=== PATIENT | male | born 1945 | race Caucasian/White ===

== ENCOUNTER 2016-07-07 13:55 | Observation (INO) | payer MEDICARE, OTHER ==
--- NOTE | 2016-07-07 14:08 | ED ---
General Adult HPI - General Stated complaint: SEIZURE Time Seen by Provider: 07/07/16 13:56 Source: RN notes reviewed, old records reviewed - History of Present Illness Initial comments: This is a 70-year-old male the ER for evaluation. Patient has no recollections of events. Patient was In the grocery store and per bystanders EMS and the history obtained from the chart patient hasn't difficulty fumbling to pay for his meal and he then had a fall and then had a seizure. Patient has no medical history of seizures, denies drugs or alcohol, does have history of diabetes and high cholesterol, has been taking medication as prescribed - Related Data Allergies Allergy/AdvReac Type Severity Reaction Status Date / Time No Known Allergies Allergy Verified 07/07/16 14:03 Review of Systems ROS Statement: Those systems with pertinent positive or pertinent negative responses have been documented in the HPI. ROS Other: All systems not noted in ROS Statement are negative. General Exam General appearance: alert, in no apparent distress Head exam: Present: atraumatic, normocephalic, normal inspection Eye exam: Present: normal appearance, PERRL, EOMI. Absent: scleral icterus, conjunctival injection, periorbital swelling ENT exam: Present: normal exam, mucous membranes moist Neck exam: Present: normal inspection. Absent: tenderness, meningismus, lymphadenopathy Respiratory exam: Present: normal lung sounds bilaterally. Absent: respiratory distress, wheezes, rales, rhonchi, stridor Cardiovascular Exam: Present: regular rate, normal rhythm, normal heart sounds. Absent: systolic murmur, diastolic murmur, rubs, gallop, clicks GI/Abdominal exam: Present: soft, normal bowel sounds. Absent: distended, tenderness, guarding, rebound, rigid Extremities exam: Present: normal inspection, full ROM, normal capillary refill. Absent: tenderness, pedal edema, joint swelling, calf tenderness Back exam: Present: normal inspection Neurological exam: Present: alert, oriented X3, CN II-XII intact Psychiatric exam: Present: normal affect, normal mood Skin exam: Present: warm, dry, intact, normal color. Absent: rash Course Vital Signs 07/07/16 07/07/16 14:03 14:37 Temperature 97.0 F L Pulse Rate 93 84 Respiratory 18 18 Rate Blood Pressure 159/79 133/60 O2 Sat by Pulse 96 97 Oximetry - Reevaluation(s) Reevaluation #1: 07/07/16 15:09 Patient remains without syncope or seizure here in the emergency room Reevaluation #2: 07/07/16 15:09 Speaking with , patient does seem to have episodes with his glipizide of hypoglycemia that makes him have his altered mental status issues EKG Findings - EKG Comments: EKG Findings:: EKG shows normal sinus rhythm rate of 93, TN 176, QRS 90, QTC 482 Medical Decision Making - Medical Decision Making 70-year-old ER for evaluation of syncope and seizure, CT is normal, lab work is normal, blood sugar is maintained normal throughout stay, patient asymptomatic has no recollection of events, patient be admitted for neurological evaluation - Lab Data Result diagrams: 07/07/16 14:10 07/07/16 14:10 Lab Results 07/07/16 07/07/16 07/07/16 Range/Units 14:10 14:10 14:10 WBC 9.4 (3.8-10.6) k/uL RBC 4.51 (4.30-5.90) m/uL Hgb 13.5 (13.0-17.5) gm/dL Hct 40.8 (39.0-53.0) % MCV 90.4 (80.0-100.0) fL MCH 30.0 (25.0-35.0) pg MCHC 33.2 (31.0-37.0) g/dL RDW 12.9 (11.5-15.5) % Plt Count 273 (150-450) k/uL Neutrophils % 65 % Lymphocytes % 26 % Monocytes % 4 % Eosinophils % 1 % Basophils % 0 % Neutrophils # 6.1 (1.3-7.7) k/uL Lymphocytes # 2.4 (1.0-4.8) k/uL Monocytes # 0.4 (0-1.0) k/uL Eosinophils # 0.1 (0-0.7) k/uL Basophils # 0.0 (0-0.2) k/uL Sodium 140 (137-145) mmol/L Potassium 4.3 (3.5-5.1) mmol/L Chloride 106 (98-107) mmol/L Carbon Dioxide 14 L (22-30) mmol/L Anion Gap 20 mmol/L BUN 14 (9-20) mg/dL Creatinine 1.30 H (0.66-1.25) mg/dL Est GFR (MDRD) Af Amer >60 (>60 ml/min/1.73 sqM) Est GFR (MDRD) Non-Af 54 (>60 ml/min/1.73 sqM) Glucose 106 H (74-99) mg/dL POC Glucose (mg/dL) (75-99) mg/dL POC Glu Ships Or [employer]es Loader ID Calcium 9.5 (8.4-10.2) mg/dL Phosphorus 2.8 (2.5-4.5) mg/dL Magnesium 1.9 (1.6-2.3) mg/dL Total Bilirubin 0.6 (0.2-1.3) mg/dL AST 32 (17-59) U/L ALT 43 (21-72) U/L Alkaline Phosphatase 70 (38-126) U/L Total Creatine Kinase 69 (55-170) U/L CK-MB (CK-2) 0.7 (0.0-2.4) ng/mL CK-MB (CK-2) Rel Index 1.0 Troponin I <0.012 (0.000-0.034) ng/mL Total Protein 6.9 (6.3-8.2) g/dL Albumin 4.1 (3.5-5.0) g/dL Urine Color Urine Appearance (Clear) Urine pH (5.0-8.0) Ur Specific [place] (1.001-1.035) Urine Protein (Negative) Urine Glucose (UA) (Negative) Urine Ketones (Negative) Urine Blood (Negative) Urine Nitrate (Negative) Urine Bilirubin (Negative) Urine Urobilinogen (<2.0) mg/dL Ur Leukocyte Esterase (Negative) Urine RBC (0-5) /hpf Urine WBC (0-5) /hpf Urine Mucus (None) /hpf Urine Sperm (None) /hpf Serum Alcohol <10 mg/dL 07/07/16 07/07/16 Range/Units 14:12 14:45 WBC (3.8-10.6) k/uL RBC (4.30-5.90) m/uL Hgb (13.0-17.5) gm/dL Hct (39.0-53.0) % MCV (80.0-100.0) fL MCH (25.0-35.0) pg MCHC (31.0-37.0) g/dL RDW (11.5-15.5) % Plt Count (150-450) k/uL Neutrophils % % Lymphocytes % % Monocytes % % Eosinophils % % Basophils % % Neutrophils # (1.3-7.7) k/uL Lymphocytes # (1.0-4.8) k/uL Monocytes # (0-1.0) k/uL Eosinophils # (0-0.7) k/uL Basophils # (0-0.2) k/uL Sodium (137-145) mmol/L Potassium (3.5-5.1) mmol/L Chloride (98-107) mmol/L Carbon Dioxide (22-30) mmol/L Anion Gap mmol/L BUN (9-20) mg/dL Creatinine (0.66-1.25) mg/dL Est GFR (MDRD) Af Amer (>60 ml/min/1.73 sqM) Est GFR (MDRD) Non-Af (>60 ml/min/1.73 sqM) Glucose (74-99) mg/dL POC Glucose (mg/dL) 100 H (75-99) mg/dL POC Glu S[employer] Or [employer]es Loader ID Branch, Ari Calcium (8.4-10.2) mg/dL Phosphorus (2.5-4.5) mg/dL Magnesium (1.6-2.3) mg/dL Total Bilirubin (0.2-1.3) mg/dL AST (17-59) U/L ALT (21-72) U/L Alkaline Phosphatase (38-126) U/L Total Creatine Kinase (55-170) U/L CK-MB (CK-2) (0.0-2.4) ng/mL CK-MB (CK-2) Rel Index Troponin I (0.000-0.034) ng/mL Total Protein (6.3-8.2) g/dL Albumin (3.5-5.0) g/dL Urine Color Yellow Urine Appearance Clear (Clear) Urine pH 5.0 (5.0-8.0) Ur Specific [place] 1.016 (1.001-1.035) Urine Protein 1+ H (Negative) Urine Glucose (UA) Negative (Negative) Urine Ketones Trace H (Negative) Urine Blood Negative (Negative) Urine Nitrate Negative (Negative) Urine Bilirubin Negative (Negative) Urine Urobilinogen <2.0 (<2.0) mg/dL Ur Leukocyte Esterase Negative (Negative) Urine RBC 2 (0-5) /hpf Urine WBC 1 (0-5) /hpf Urine Mucus Rare H (None) /hpf Urine Sperm Few H (None) /hpf Serum Alcohol mg/dL - Radiology Data Radiology results: report reviewed (Chest x-ray negative for acute disease, CT brain is negative for acute disease), image reviewed Disposition Clinical Impression: Dehydration, Vasovagal syncope, New onset seizure Disposition: ADMITTED IP TO THIS HOSP Condition: Fair Referrals: Tavares Gloria DO [Primary Care Provider] - 1-2 days
[2016-07-07 14:14] LABS: Glucose,Whole Blood 100 mg/dL (75-99)
[2016-07-07 14:35] LABS: Basophils % (A) 0 %; CH 30.4; CHCM 33.8; Eosinophils # (A) 0.1 k/uL (0-0.7); Eosinophils % (A) 1 %; HCT 40.8 % (39.0-53.0); HDW 2.76; HGB 13.5 gm/dL (13.0-17.5); Luc % (Auto) 4; Lymphocytes # (A) 2.4 k/uL (1.0-4.8); Lymphocytes % (A) 26 %; MCHC 33.2 g/dL (31.0-37.0); MCV 90.4 fL (80.0-100.0); Mean Platelet Volume 7.6; Monocytes # (A) 0.4 k/uL (0-1.0); Monocytes % (A) 4 %; Neutrophils # (A) 6.1 k/uL (1.3-7.7); Neutrophils % (A) 65 %; RBC 4.51 m/uL (4.30-5.90); RDW 12.9 % (11.5-15.5); WBC 9.4 k/uL (3.8-10.6); WBC (Perox) 10.06
--- NOTE | 2016-07-07 14:36 | CT ---
EXAMINATION TYPE: CT brain wo con DATE OF EXAM: 07/07/2016 2:31 PM COMPARISON: NONE HISTORY: Syncopal episode. CT DLP: 1096.10 mGycm Automated exposure control for dose reduction was used. FINDINGS: There are mild, generalized changes of sulcal prominence and ventriculomegaly, compatible with mild a trophic change. There is diffuse periventricular white matter lucency, compatible with chronic white matter ischemic change. There is no focal lesion, mass effect or midline shift identified. I do not s ee evidence of intracranial blood. Visualized portions of the paranasal sinuses and mastoids are clear. IMPRESSION: 1. NO ACUTE INTRACRANIAL ABNORMALITY. 2. MILD ATROPHIC CHANGE. 3. CHRONIC WHITE MATTER ISCHEMIC CHANGE.
--- NOTE | 2016-07-07 14:37 | XR ---
EXAMINATION TYPE: XR chest 2V DATE OF EXAM: 07/07/2016 2:33 PM HISTORY: Weakness. REFERENCE: NONE. FINDINGS: Heart size is upper limits of normal. The lungs are clear. Pleural spaces are clear. IMPRESSION: BORDERLINE CARDIOMEGALY.
[2016-07-07 14:45] LABS: ALT 43 U/L (21-72); AST 32 U/L (17-59); Alcohol <10 mg/dL; Alkaline Phosphatase 70 U/L (38-126); Anion Gap 20 mmol/L; Blood Urea Nitrogen 14 mg/dL (9-20); Calcium 9.5 mg/dL (8.4-10.2); Carbon Dioxide 14 mmol/L (22-30); Chloride 106 mmol/L (98-107); Glucose 106 mg/dL (74-99); Magnesium 1.9 mg/dL (1.6-2.3); Non-African American GFR(MDRD) 54 (>60 ml/min/1.73 sqM); Phosphorous 2.8 mg/dL (2.5-4.5); Potassium 4.3 mmol/L (3.5-5.1); Sodium 140 mmol/L (137-145); Total Bilirubin 0.6 mg/dL (0.2-1.3); Total Protein 6.9 g/dL (6.3-8.2)
[2016-07-07] MEDS ORDERED: ONDANSETRON 4 MG/2 ML VIAL IVP STA (14:48)
[2016-07-07 14:53] LABS: Creatine Kinase 69 U/L (55-170)
[2016-07-07 14:56] LABS: Appearance,Urine Clear (Clear); Bilirubin,Urine Negative (Negative); Glucose,Urine (UA) Negative (Negative); Ketones,Urine Trace (Negative); Leukocyte Esterase,Urine Negative (Negative); Mucus,Urine Rare /hpf; Nitrite,Urine Negative (Negative); Particle Count 2532; Protein,Urine 1+ (Negative); RBC,Urine 2 /hpf (0-5); Specific Gravity,Urine 1.016 (1.001-1.035); Sperm,Urine Few /hpf; UA Billing (MACRO vs. MICRO) MICRO; Urobilinogen,Urine <2.0 mg/dL (<2.0); WBC,Urine 1 /hpf (0-5)
[2016-07-07 14:58] LABS: INR 1.1 (<1.1)
[2016-07-07 15:06] LABS: Creatine Kinase MB 0.7 ng/mL (0.0-2.4); Troponin I <0.012 ng/mL (0.000-0.034)
[2016-07-07] MEDS ORDERED: ASPIRIN 325 MG TAB PO STA (15:07)
[2016-07-07 15:23] LABS: Partial Thromboplastin Time 21.4 sec (22.0-30.0)
[2016-07-07] MEDS: SODIUM CHLORIDE 0.9% 1,000 ML IV SCH (15:32)
[2016-07-07 15:40] LABS: Glucose,Whole Blood 107 mg/dL (75-99)
[2016-07-07 17:20] VITALS: BMI 29.5
[2016-07-07] MEDS ORDERED: HYDROcodone/APAP 7.5-325MG 1 EACH TAB PO PRN (19:46)
[2016-07-07 20:36] LABS: Glucose,Whole Blood 195 mg/dL (75-99)
[2016-07-07] MEDS ORDERED: ATORVASTATIN 80 MG TAB PO SCH (21:00)
[2016-07-07] MEDS: metFORMIN 500 MG TAB PO SCH (21:42)
[2016-07-08 02:22] LABS: Glucose,Whole Blood 81 mg/dL (75-99)
[2016-07-08] MEDS: SODIUM CHLORIDE 0.9% 1,000 ML IV SCH ×2 (03:25→11:12)
[2016-07-08 03:54] VITALS: RESP 18
[2016-07-08 06:34] LABS: Glucose,Whole Blood 132 mg/dL (75-99)
[2016-07-08] MEDS: metFORMIN 500 MG TAB PO SCH (06:35)
[2016-07-08] MEDS ORDERED: glipiZIDE 10 MG TAB PO SCH (07:30)
[2016-07-08] MEDS ORDERED: LISINOPRIL 5 MG TAB PO SCH (09:00)
[2016-07-08] MEDS ORDERED: ASPIRIN 81 MG CHEW PO SCH (09:00)
[2016-07-08] MEDS ORDERED: ASPIRIN 325 MG TAB PO SCH (09:00)
[2016-07-08] MEDS: FLUTICASONE 50MCG/SPRAY NASAL 16GM EA NOSTRIL SCH ×2 (09:39→09:41)
[2016-07-08 11:33] LABS: Glucose,Whole Blood 84 mg/dL (75-99)
[2016-07-08 16:02] VITALS: BP 131/66; PULSE 86; TEMP 97.8
[2016-07-08 16:27] LABS: Glucose,Whole Blood 98 mg/dL (75-99)
--- NOTE | 2016-07-08 17:33 | P.HPIM ---
History of Present Illness H&P Date: 07/08/16 (Discharge summary) This is a 70-year-old gentleman who is currently on metformin and glipizide 10 mg twice a day for diabetes mellitus type 2 was admitted after patient had a syncopal episode. Patient was a furniture store. Patient did not have any aura prior to the episode currently fainted. Patient was evaluated by the EMS at that time was noted to have a blood glucose level of 61 according to his . Pt was brought into the hospital was that evaluated did not note any focal neural deficits. Patient does not have a prior history of syncope. Patient denies having any history of heart disease, previous strokes, carotid disease. Patient apparently used to weigh 220 pounds and currently is at 185 pounds. Patient states that he does not check his blood glucose levels in the recent times. In doing the hospital physician on the current regimen patient did have 2 episodes of mild hypoglycemia however was asymptomatic. Patient also stated that the day of the episode patient did not have anything to eat however did take take his medications. Review of Systems All systems: negative (Noted in HPI) Past Medical History Past Medical History: Diabetes Mellitus Additional Past Medical History / Comment(s): neuropathy History of Any Multi-Drug Resistant Organisms: None Reported Past Surgical History: No Surgical Hx Reported Past Psychological History: PTSD Smoking Status: Former smoker Past Alcohol Use History: None Reported Past Drug Use History: None Reported Medications and Allergies Home Medications Medication Instructions Recorded Confirmed Type Aspirin EC [Ecotrin Low Dose] 81 mg PO DAILY 07/07/16 07/07/16 History Atorvastatin Calcium [Lipitor] 80 mg PO HS 07/07/16 07/07/16 History Fluticasone Nasal [place] [Flonase 1 spray EA NOSTRIL DAILY 07/07/16 07/07/16 History Nasal [place]] HYDROcodone/APAP 7.5-325MG [Ragan 1 tab PO BID PRN 07/07/16 07/07/16 History 7.5-325] Lisinopril [Zestril] 5 mg PO QAM 07/07/16 07/07/16 History Sertraline [Zoloft] 100 mg PO DAILY 07/07/16 07/07/16 History Allergies Allergy/AdvReac Type Severity Reaction Status Date / Time flunisolide AdvReac Burning Verified 07/07/16 15:21 Sensation Physical Exam Vitals: Vital Signs Temp Pulse Resp BP Pulse Ox 07/08/16 16:00 97.8 F 86 18 131/66 97 07/08/16 11:30 97.5 F L 97 18 156/76 96 07/08/16 09:39 96.1 F L 97 18 161/72 96 07/08/16 03:48 97.6 F 81 18 120/58 97 07/07/16 23:12 97.2 F L 88 19 116/56 97 07/07/16 19:47 97.9 F 105 H 18 132/63 96 Intake and Output 07/08/16 07/08/16 07/08/16 06:59 14:59 22:59 Intake Total 400 1520 Output Total 1450 Balance -1050 1520 Intake: IV 400 600 Sodium Chloride 0.9% 1, 400 600 000 ml @ 100 mls/hr IV . Q10H COLBY Rx#:[id number] Oral 920 Output: Urine 1450 Other: Voiding Method Urinal Urinal Urinal Weight 84.9 kg Physical exam Gen. appearance oriented 3 in no distress Neck is supple no JVD Lungs good air entry clear to auscultation no rhonchi or wheezing Heart S1-S2 heard regular rate and rhythm no murmurs appreciated Abdomen is soft nontender no organomegaly bowel sounds are intact Neurologically cranial nerves II-12 grossly intact no focal motor or sensory deficits noted. Gait is within normal limits Skin no abnormalities appreciated Results CBC & Chem 7: 07/07/16 14:10 07/07/16 14:10 Labs: Abnormal Lab Results - Last 24 Hours (Table) 07/07/16 07/08/16 Range/Units 20:23 06:27 POC Glucose (mg/dL) 195 H 132 H (75-99) mg/dL Assessment and Plan Plan: #1 syncope likely secondary to hypoglycemia #2 anion gap metabolic acidosis on admission however patient is asymptomatic and this is incidental #3 diabetes mellitus type II with recent weight loss #3 ketones likely secondary to poor oral intake which is likely the cause of #2 #4 history of hypertension #5 dyslipidemia #6 acute kidney injury Plan Patient is asymptomatic is made to ambulate. Patient is to be discharged home to follow-up with his primary care physician. Patient's glipizide will be discontinued. Patient's metformin will be decreased to 750 mg twice a day. Patient is encouraged to maintain a glucose diary's. a get up and go test was done patient was asymptomatic hence is discharged home.
--- NOTE | 2016-07-09 05:12 | EEG ---
DATE OF SERVICE: 07/08/2016 INDICATIONS FOR EXAMINATION: This patient is a 70-year-old male being evaluated for new onset seizure. AGE: 70Y EEG FINDINGS: A routine 21-channel, awake digital EEG recording was accomplished utilizing the 10 to 20 international system with bipolar and referential montages. The background activity in the most alert resting state consists of a low to medium amplitude, fairly well-developed and well-sustained 6 to 7 Hz activity over the posterior head regions. This posterior rhythm attenuates to eye opening. There is a small amount of low amplitude 18 to 20 Hz beta activity seen maximally over the anterior head regions. Muscle and movement artifact was observed on a few occasions during the tracing. Hyperventilation was not performed. Photic stimulation at flash frequencies of 2 to 30 Hz produced a good symmetrical occipital driving response. No epileptiform discharges were seen. IMPRESSION: This EEG is mildly abnormal in diffuse fashion due to slight slowing of the EEG background. The EEG failed to reveal any focal, lateralized or epileptiform abnormalities. Clinical correlation is recommended.
== END 2016-07-08 17:51 | disposition home or self-care (01) ==
LOC: EC 13:55 → SUPCPDRO 13:55 → 6SEL 15:08
PROVIDERS: ADMIT Hospitalist; ATTEND Hospitalist
DX: R55 Syncope and collapse (principal); E11.649 Type 2 diabetes mellitus with hypoglycemia without coma; E87.2 Acidosis; E11.40 Type 2 diabetes mellitus with diabetic neuropathy, unspecified; R63.4 Abnormal weight loss; E86.0 Dehydration; I10 Essential (primary) hypertension; E78.5 Hyperlipidemia, unspecified; N17.9 Acute kidney failure, unspecified; Z87.891 Personal history of nicotine dependence; Z79.82 Long term (current) use of aspirin; Z79.899 Other long term (current) drug therapy; Z79.51 Long term (current) use of inhaled steroids; Z88.8 Allergy status to other drugs, medicaments and biological substances; Z79.84 Long term (current) use of oral hypoglycemic drugs
CPT/HCPCS: 36415; 95819; 93005; 80053; 82550; 82553; 83735; 84100; 84484 ×2; 85025; 85610; 85730; 81001; 80320; 87086; 71020; 70450; 99285; 96374; 96361; G0378 ×2; J2405

== ENCOUNTER → 2022-08-09 | Outpatient (CLI) | payer OTHER ==
--- NOTE | 2022-08-09 17:10 | CA ---
Transthoracic Echo Report Name: Tahir Ibarra Age: 76 Gender: M : 1945 Exam Date: 08/09/2022 14:06 Exam Location: [facility] Ht (in): 70 Wt (lb): 175 Ordering Physician: [facility], Clinic Attending/Referring Phys: Ivanna Garcia PAC Station Inspector Vasyl Chapin RDCS Procedure CPT: Indications: R01.1 Cardiac Hx: HTN;D.M.; High Cholesterol Technical Quality: Fair Contrast 1: Total Dose (mL): Contrast 2: Total Dose (mL): MEASUREMENTS (Male / Female) Normal Values 2D ECHO LV Diastolic Diameter PLAX 4.7 cm 4.2 - 5.9 / 3.9 - 5.3 cm LV Systolic Diameter PLAX 3.4 cm LV Fractional Shortening PLAX 27.0 % IVS Diastolic Thickness 0.9 cm 0.6 - 1.0 / 0.6 - 0.9 cm IVS Systolic Thickness 1.5 cm LVPW Diastolic Thickness 1.1 cm 0.6 - 1.0 / 0.6 - 0.9 cm LVPW Systolic Thickness 1.5 cm LV Relative Wall Thickness 0.4 RV Internal Dim ED PLAX 2.9 cm LVOT Diameter 2.0 cm LA Systolic Diameter LX 3.5 cm 3.0 - 4.0 / 2.7 - 3.8 cm LV Diastolic Volume MOD BP 99.2 cm??? 67 - 155 / 56 - 104 cm??? LV Systolic Volume MOD BP 36.1 cm??? 22 - 58 / 19 - 49 cm??? LV Ejection Fraction MOD BP 63.6 % >= 55 % LV Stroke Volume MOD BP 63.1 cm??? LV Diastolic Volume MOD 4C 111.7 cm??? LV Systolic Volume MOD 4C 38.3 cm??? LV Ejection Fraction MOD 4C 65.7 % LV Stroke Volume MOD 4C 73.4 cm??? LV Diastolic Length 4C 7.9 cm LV Systolic Length 4C 6.0 cm LV Diastolic Volume MOD 2C 76.5 cm??? LV Systolic Volume MOD 2C 35.0 cm??? LV Ejection Fraction MOD 2C 54.3 % LV Stroke Volume MOD 2C 41.5 cm??? LV Diastolic Length 2C 6.8 cm LV Systolic Length 2C 5.9 cm Ascending Aorta Diameter 2.2 cm M-MODE Aortic Root Diameter MM 2.7 cm LA Systolic Diameter MM 3.2 cm LA Ao Ratio MM 1.2 MV E Point Septal Separation 0.4 cm AV Cusp Separation MM 1.2 cm DOPPLER AV Peak Velocity 167.2 cm/s AV Peak Gradient 11.2 mmHg MV Deceleration [place] 343.4 cm/s??? Mitral E Point Velocity 75.6 cm/s Mitral A Point Velocity 90.0 cm/s Mitral E to A Ratio 0.8 MV Deceleration Time 220.3 ms MV E' Velocity 8.1 cm/s Mitral E to MV E' Ratio 9.3 TR Peak Velocity 113.7 cm/s TR Peak Gradient 5.2 mmHg Right Ventricular Systolic Press 10.2 mmHg PV Peak Velocity 113.7 cm/s PV Peak Gradient 5.2 mmHg FINDINGS Left Ventricle Left ventricular ejection fraction is estimated at 55-60 %. Grade 1 diastolic dysfunction. Right Ventricle Normal right ventricular size and function. Right Atrium Normal right atrial size. Left Atrium Normal left atrial size. Mitral Valve Mitral valve thickened. Trace mitral regurgitation. Aortic Valve Trileaflet aortic valve. Tricuspid Valve Trace to mild tricuspid regurgitation. Pulmonic Valve Valvular pulmonic stenosis. PVmax-1.35 m/sec. Pericardium Normal pericardium. No pericardial effusion. Aorta Normal size aortic root and proximal ascending aorta. CONCLUSIONS Normal LV systolic function Previewed by: Dr. Raji Stanley MD (Electronically Signed) Final Date: 09 August 2022 17:10
== END | disposition home or self-care (01) ==
LOC: RADECHMAIN 13:32
DX: R01.1 Cardiac murmur, unspecified (principal)
CPT/HCPCS: 93306